=== PATIENT | male | born 1950 | race American Indian/Alaskan Native ===

== ENCOUNTER 2019-03-09 15:50 | Emergency (ER) | payer MEDICARE ==
--- NOTE | 2019-03-09 15:57 | Event Note ---
ED Screening Note Date of service: 03/09/19 Time: 15:56 ED Screening Note: Pt complains of SOB and abdominal fullness x 1 week states ran out of lasix-+hx of CHF This initial assessment/diagnostic orders/clinical plan/treatment(s) is/are subject to change based on patients health status, clinical progression and re- assessment by fellow clinical providers in the ED. Further treatment and workup at subsequent clinical providers discretion. Patient/guardian urged not to elope from the ED as their condition may be serious if not clinically assessed and managed. Initial orders include: CXR labs
[2019-03-09 17:15] LABS: Basophils % (Auto) 0.6 % (0.0-1.8); Eosinophils # (Auto) 0.2 K/mm3 (0.0-0.4); Eosinophils % (Auto) 4.2 % (0.0-4.3); Hematocrit 37.3 % (35.5-45.6); Hemoglobin 12.3 gm/dl (11.8-15.2); Lymphocytes # (Auto) 1.8 K/mm3 (1.2-5.4); Lymphocytes % (Auto) 40.3 % (13.4-35.0); Mean Corpuscular HGB Conc 33 % (32-34); Mean Corpuscular Volume 90 fl (84-94); Monocytes # (Auto) 0.5 K/mm3 (0.0-0.8); Monocytes % (Auto) 10.1 % (0.0-7.3); Platelet Count 200 K/mm3 (140-440); Red Blood Count 4.12 M/mm3 (3.65-5.03); Red Cell Distribution Width 14.9 % (13.2-15.2)
--- NOTE | 2019-03-09 17:30 | XRay Report ---
CHEST 2 VIEWS INDICATION / CLINICAL INFORMATION: shortness of breath. COMPARISON: None available. FINDINGS: SUPPORT DEVICES: None. HEART / MEDIASTINUM: Heart is mildly enlarged. Mild pulmonary venous hypertension. LUNGS / PLEURA: No significant pulmonary or pleural abnormality. No pneumothorax. ADDITIONAL FINDINGS: No significant additional findings. IMPRESSION: 1. Cardiomegaly with pulmonary venous hypertension. No definite overt pulmonary edema. Signer Name: Asha Osuna MD Signed: 03/09/2019 5:25 PM Workstation Name: [id number]
[2019-03-09 17:40] LABS: Alanine Aminotransferase 15 units/L (7-56); BUN/Creatinine Ratio 12; Blood Urea Nitrogen 12 mg/dL (9-20); Calcium 9.4 mg/dL (8.4-10.2); Hemolysis Index 5
[2019-03-09] MEDS ORDERED: FUROSEMIDE 20 MG TAB PO ONE (20:56)
--- NOTE | 2019-03-09 21:01 | Emergency Department Report ---
ED Shortness of Breath HPI - General Chief Complaint: Dyspnea/Respdistress Stated Complaint: FLUID BUILD UP,SOB Time Seen by Provider: 03/09/19 15:55 Source: patient Mode of arrival: Ambulatory Limitations: No Limitations - History of Present Illness Initial Comments: 68-year-old male with history of hypertension and congestive heart failure presents to ED with shortness of breath. Patient states he ran out of his Lasix 1 week ago. States he normally takes 40 mg once a day. He denies any swelling in his lower extremities. Patient also denies chest pain. Reports mild dyspnea on exertion. Patient normally seen at the [facility]. He also reports history of an irregular heartbeat "for years." States he was told that he has "an extra beat." MD Complaint: shortness of breath -: days(s) (3) Severity: mild Consistency: intermittent Improves With: rest Worsens With: exertion Known History Of: congestive heart failure Treatments Prior to Arrival: none - Related Data Home Oxygen Therapy: No Previous Rx's Medication Instructions Recorded Last Taken Type Furosemide [Lasix TAB] 40 mg PO QDAY #30 tablet 03/09/19 Unknown Rx Allergies Allergy/AdvReac Type Severity Reaction Status Date / Time Sulfa (Sulfonamide Allergy Unknown Verified 03/09/19 15:58 Antibiotics) ED Review of Systems ROS: Stated complaint: FLUID BUILD UP,SOB Other details as noted in HPI Comment: All other systems reviewed and negative Constitutional: denies: chills, fever Respiratory: SOB with exertion, wheezing. denies: cough, orthopnea Cardiovascular: denies: chest pain Gastrointestinal: denies: abdominal pain, nausea, vomiting Musculoskeletal: other (denies lower extremity pain or swelling) ED Past Medical Hx - Past Medical History Previous Medical History?: Yes Hx Hypertension: Yes Hx Congestive Heart Failure: Yes - Surgical History Past Surgical History?: No - Social History Smoking Status: Never Smoker - Medications Home Medications: Home Medications Medication Instructions Recorded Confirmed Last Taken Type Furosemide [Lasix TAB] 40 mg PO QDAY #30 tablet 03/09/19 Unknown Rx ED Physical Exam - General Limitations: No Limitations General appearance: alert, in no apparent distress, obese - Head Head exam: Present: atraumatic, normocephalic - Eye Eye exam: Present: normal appearance - ENT ENT exam: Present: mucous membranes moist - Neck Neck exam: Present: normal inspection - Respiratory Respiratory exam: Present: normal lung sounds bilaterally. Absent: respiratory distress, wheezes, rales - Cardiovascular Cardiovascular Exam: Present: regular rate, normal rhythm - GI/Abdominal GI/Abdominal exam: Present: soft. Absent: distended, tenderness - Extremities Exam Extremities exam: Present: normal inspection, pedal edema (trace) - Neurological Exam Neurological exam: Present: alert, oriented X3 - Psychiatric Psychiatric exam: Present: normal affect, normal mood - Skin Skin exam: Present: warm, dry, intact, normal color ED Course Vital Signs 03/09/19 03/09/19 03/09/19 15:54 20:53 22:00 Temperature 98.3 F Pulse Rate 65 77 Respiratory 18 12 15 Rate Blood Pressure 151/105 Blood Pressure 140/96 [Left] O2 Sat by Pulse 94 98 99 Oximetry 03/09/19 22:01 Temperature Pulse Rate 90 Respiratory 15 Rate Blood Pressure Blood Pressure 150/82 [Left] O2 Sat by Pulse 98 Oximetry ED Medical Decision Making - Lab Data Result diagrams: 03/09/19 16:38 03/09/19 16:38 - EKG Data -: EKG Interpreted by Tx EKG shows normal: sinus rhythm, QRS complexes, ST-T waves Rate: normal - EKG Data Interpretation: other (prolonged QT, ventricular trigeminy) - Radiology Data Radiology results: report reviewed, image reviewed - Medical Decision Making 68 yo M w/ SOB x 3 days. States he ran out of his lasix. [facility]. O2 sats normal, BNP normal, CXR does not show evidence of pulmonary edema. EKG shows ventricualr trigeminy, troponin normal. Pt reports hx of "irregular heartbeat" with what he describes as extra beats. Lasix given here in ED. Prescription given for lasix. He is in no respiratory distress and is comfortable w/ discharge home. Return precautions given. - Differential Diagnosis pulm edema, pneumonia, ACS Critical care attestation.: If time is entered above; I have spent that time in minutes in the direct care of this critically ill patient, excluding procedure time. ED Disposition Clinical Impression: CHF (congestive heart failure) Disposition: DC-01 TO HOME OR SELFCARE Is pt being admited?: No Condition: Stable Instructions: Heart Failure (ED) Prescriptions: Furosemide [Lasix TAB] 40 mg PO QDAY #30 tablet Referrals: JACOB BUSTAMANTE [Other] - 3-5 Days PRIMARY CARE, [Referring] - 3-5 Days
[2019-03-09 22:02] VITALS: BP 150/82
== END 2019-03-09 22:15 | disposition home or self-care (01) ==
LOC: ED 15:50
DX: I11.0 Hypertensive heart disease with heart failure (principal); I50.9 Heart failure, unspecified; Z79.899 Other long term (current) drug therapy; Z88.2 Allergy status to sulfonamides
CPT/HCPCS: 36415; 71046; 80053; 83880; 84484; 85025; 93005; 93010